=== PATIENT | male | born 1965 | race Hispanic/Latino ===

== ENCOUNTER 2020-04-14 13:41 | Emergency (ER) | payer SELFPAY ==
[2020-04-14] MEDS ORDERED: PREDNISONE20 MG PO (14:56)
[2020-04-14] MEDS ORDERED: VALACYCLOVIR500 MG PO (14:56)
[2020-04-14 15:08] VITALS: BP 114/77
== END 2020-04-14 15:12 | disposition home or self-care (01) | DRG 74 ==
LOC: ED 13:41
DX: G51.0 Bell's palsy (principal)